=== PATIENT | male | born 1940 | race Caucasian/White ===

== ENCOUNTER 2017-10-26 07:41 | Emergency (ER) | payer OTHER ==
[~2017-10-26] VITALS: Ht 167.6 cm; Wt 75.6 kg
[~2017-10-26 07:41] MED LIST: ACTOS45 MG PO; AQUASOL-A,10000 UNIT PO; ASPIRIN81 M1 PO; Aspirin E.C. PO; Aspirin PO; BP med; BYETTA PO; BYETTA10 MCG/0.0 SC; Bactrim,Septra DS 80 PO; CARVEDILOL12.5 MG PO; CORAL CALCIUM1 EAC2 PO; Coreg PO; ENALAPRIL MALEA20 M1 PO; ENALAPRIL MALEA20 MG PO; FISH OIL 1,0001 EAC7 PO; FISH OIL SOFTG1 EAC2 PO; Flonase BOTH NARES; GABAPENTIN600 MG PO; GLUCOVANCE 51 TABLET PO; GLYBURID-METFO1 EAC3 PO; GLYBURIDE PO; HORIZANT600 MG PO; HUMALOG100 UNIT/2 SC; LAMISIL250 MG PO; LANTUS 3 M100 UNITS/ SC; LANTUS 3 M100 UNITS1 SC; LO-DOSE ASPIRIN81 M1 PO; LOMOTIL TABLET1 EACH PO; LOMOTIL,LONO1 TABLET PO; LamiSIL PO; MEGACE20 MG PO; MEGESTROL ACETA20 MG PO; NORVASC5 MG PO; Neurontin PO; PRAVASTATIN SOD80 MG PO; Pravachol PO; SIMVASTATIN80 MG PO; SLO-NIACIN250 MG PO; TERBINAFINE HC250 M1 PO; TERBINAFINE HCL PO; VITAMIN B-121000 MCG PO; VITAMIN D1000 INTUN PO; VITAMIN D32000 UNI1 PO; Vasotec PO; Vicodin,Lortab 5/500 PO; Vicodin,Norco 5/325 PO; Vitamin B-12 PO; Vitamin D PO; ZETIA10 MG PO; Zetia PO; Zocor PO; [UNRECOGNIZED DRUG - OTHER]; [UNRECOGNIZED DRUG - SUPPLY]; diabetic med
[2017-10-26 08:39] LABS: HEMATOCRIT 47.3 % (38.0-50.0); HEMOGLOBIN 16.4 G/DL (12.5-16.6); MCH 31.2 PG (29.0-34.0); MCHC 34.7 G/DL (30.0-36.0); MCV 89.9 FL (86-99); PLATELET COUNT 247 K/uL (156-360); RBC DIS.WIDTH-CV 13.2 % (11.8-14.6); RBC DIS.WIDTH-SD 43.6 % (39-53); RED BLOOD COUNT 5.26 M/uL (4.00-5.50); WHITE BLOOD COUNT 17.4 K/uL (4.1-10.2)
[2017-10-26 08:42] LABS: ALBUMIN 4.1 g/dL (3.2-4.8); CHLORIDE 98 mEq/L (99-109); POTASSIUM 4.3 mEq/L (3.7-5.4); SODIUM 135 mEq/L (136-147)
[2017-10-26 08:45] LABS: TOTAL PROTEIN 7.5 g/dL (6.4-8.3)
[2017-10-26 08:46] LABS: TOTAL BILIRUBIN 1.3 mg/dL (0.0-1.0)
[2017-10-26 08:48] LABS: ALKALINE PHOSPHATASE 200 IU/L (3-129); CREATININE 1.4 mg/dL (0.6-1.3); GFR ESTIMATE (CALCULATED) 52 mL/min/ (58.99-99999)
[2017-10-26 08:49] LABS: GLUCOSE 467 mg/dL (70-99); UREA NITROGEN (BUN) 21 mg/dL (9-23)
[2017-10-26 08:50] LABS: AST (GOT) 18 IU/L (2-34)
[2017-10-26 08:51] LABS: ALT (GPT) 30 IU/L (3-49)
[2017-10-26 09:06] LABS: APPEARANCE CLEAR ((CLEAR)); BILIRUBIN NEGATIVE; BLOOD SMALL; COLOR YELLOW ((YELLOW)); GLUCOSE (STRIP) >=500; KETONES 5; LEUKOCYTES SMALL; NITRITE NEGATIVE; PROTEIN (STRIP) NEGATIVE; SPECIFIC GRAVITY 1.023 (1.000-1.030); UROBILINOGEN 0.2 MG/DL (0.2-1.0)
[2017-10-26 09:12] LABS: BACTERIA NONE SEEN /HPF; EPITHELIAL CELLS NONE SEEN /HPF; MUCUS NONE SEEN /LPF; RED BLOOD CELLS 0-5 /HPF (0-5); UCUL ADDED? YES
[2017-10-26] MEDS ORDERED: BACTRIM,SEPT1 TABLET PO (09:54)
[2017-10-26] MEDS ORDERED: ULTRAM50 MG PO (09:54)
[2017-10-26 10:03] VITALS: BP 134/60
== END 2017-10-26 10:16 | disposition home or self-care (01) ==
LOC: EME 07:41
PROVIDERS: Physician Assistant
DX: N39.0 Urinary tract infection, site not specified (principal); E11.9 Type 2 diabetes mellitus without complications; Z79.4 Long term (current) use of insulin; E78.5 Hyperlipidemia, unspecified; I50.9 Heart failure, unspecified; Z87.442 Personal history of urinary calculi; Z79.82 Long term (current) use of aspirin
CPT/HCPCS: 74176; 80053; 81003; 82948; 85027; 87086; 99281; 99285; J2405; J3010